=== PATIENT | male | born 1985 ===

== ENCOUNTER 2020-09-02 01:45 | Emergency (ER) | payer SELFPAY ==
[2020-09-02 02:58] VITALS: BP 148/95
[2020-09-02 04:08] LABS: Hematocrit 44.7 % (35.5-45.6); Hemoglobin 15.5 gm/dl (11.8-15.2); Mean Corpuscular HGB Conc 35 % (32-34); Mean Corpuscular Volume 84 fl (84-94); Platelet Count 257 K/mm3 (140-440); Red Blood Count 5.29 M/mm3 (3.65-5.03); Red Cell Distribution Width 14.8 % (13.2-15.2)
[2020-09-02 04:23] LABS: Alanine Aminotransferase 20 units/L (7-56); Albumin 4.1 g/dL (3.9-5); BUN/Creatinine Ratio 13; Blood Urea Nitrogen 12 mg/dL (9-20); Calcium 9.3 mg/dL (8.4-10.2); Hemolysis Index 15
[2020-09-02] MEDS ORDERED: KETOROLAC 30 MG/1 ML INJ IM ONE (04:53)
[2020-09-02] MEDS ORDERED: ONDANSETRON 4 MG ODT TAB PO ONE (04:53)
--- NOTE | 2020-09-02 05:22 | XRay Report ---
ABDOMEN 1 VIEW 09/02/2020 5:07 AM INDICATION / CLINICAL INFORMATION: abdominal pain - constipation. COMPARISON: None available. FINDINGS: TUBES / LINES: None. BOWEL GAS PATTERN: Nonspecific bowel gas pattern with constipation the right colon FREE AIR / EXTRALUMINAL GAS: None. ADDITIONAL FINDINGS: No significant additional findings. IMPRESSION: 1. No significant abnormality. Signer Name: Codey Jung MD Signed: 09/02/2020 5:17 AM Workstation Name: [id number]
[2020-09-02 05:53] LABS: Bilirubin,Urine NEG (Negative); Blood,Urine SM (Negative); Color,Urine Yellow (Yellow); Mucus,Urine FEW /HPF; Protein,Urine <15 mg/dL mg/dL (Negative); Urobilinogen,Urine < 2.0 mg/dL (<2.0); WBC,Urine < 1.0 /HPF (0.0-6.0)
--- NOTE | 2020-09-02 06:49 | Ultrasound Report ---
Testicular ultrasound INDICATION: Pain FINDINGS: Right testicle measures 3.6 x 2.0 x 3.0 cm. Normal echogenicity with normal color and Doppl er flow. Left testicle measures 3.3 x 2.2 x 2.7 cm with normal echogenicity and color Doppler flow. B ilateral hydroceles are noted. Septations in left hydrocele. Some prominent vessels are seen along th e superior-lateral aspect of the right testicle. IMPRESSION: 1. Bilateral hydroceles. Septation within the left hydrocele. 2. Prominent blood vessels along the superior-lateral aspect of the right testicle, nonspecific. No e vidence for torsion. Signer Name: Codey Jung MD Signed: 09/02/2020 6:45 AM Workstation Name: [id number]
--- NOTE | 2020-09-02 07:12 | Emergency Department Report ---
ED Abdominal Pain HPI - General Chief Complaint: Abdominal Pain Stated Complaint: RT TESTICLE SWELLING/ABD PAIN Source: patient Mode of arrival: Ambulatory Limitations: No Limitations - History of Present Illness Initial Comments: Patient is a 35-year-old -[place] male with no past medical history who presents to the ED with complaint of acute onset persistent suprapubic pain that radiates to the right testicle and right inguinal area for the last 2 days. Patient states that the pain has been constant and worse especially with any movement. Patient denies hematuria, fever, chills, dysuria, urinary frequency and urgency, traumatic injury, heavy lifting, low back pain, cough, chest pain or shortness of breath, nausea, vomiting, diarrhea, constipation or numbness and tingling or weakness of lower extremities bilaterally. MD Complaint: abdominal pain (Suprapubic), other (right testicular pain and inguinal area pain) -: Sudden, days(s) (2) Location: suprapubic Radiation: none Migration to: no migration Severity: moderate Severity scale (0 -10): 5 Quality: cramping, aching Consistency: constant Improves With: nothing Worsens With: nothing Associated Symptoms: constipation, anorexia. denies: denies other symptoms, nausea, vomiting, diarrhea, fever, chills, dysuria, hematemesis, hematochezia, melena, hematuria, syncope, other - Related Data Previous Rx's Medication Instructions Recorded Last Taken Type Docusate Sodium [Dok] 100 mg PO Q12H #60 tablet 09/02/20 Unknown Rx Ibuprofen [Motrin] 800 mg PO Q8HR PRN #24 tablet 09/02/20 Unknown Rx Magnesium Citrate 295 ml PO ONCE #1 bottle 09/02/20 Unknown Rx Allergies Allergy/AdvReac Type Severity Reaction Status Date / Time No Known Allergies Allergy Unverified 09/02/20 02:52 ED Review of Systems ROS: Stated complaint: RT TESTICLE SWELLING/ABD PAIN Other details as noted in HPI Constitutional: denies: chills, fever Eyes: denies: eye pain, eye discharge, vision change ENT: denies: ear pain, throat pain Respiratory: denies: cough, shortness of breath, wheezing Cardiovascular: denies: chest pain, palpitations Endocrine: no symptoms reported Gastrointestinal: abdominal pain (suprapubic). denies: nausea, vomiting, diarrhea Genitourinary: testicular pain (right ). denies: urgency, dysuria Musculoskeletal: denies: back pain, joint swelling, arthralgia Skin: denies: rash, lesions Neurological: denies: headache, weakness, paresthesias Psychiatric: denies: anxiety, depression Hematological/Lymphatic: denies: easy bleeding, easy bruising ED Past Medical Hx - Past Medical History Previous Medical History?: No - Surgical History Past Surgical History?: No - Medications Home Medications: Home Medications Medication Instructions Recorded Confirmed Last Taken Type Docusate Sodium [Dok] 100 mg PO Q12H #60 tablet 09/02/20 Unknown Rx Ibuprofen [Motrin] 800 mg PO Q8HR PRN #24 tablet 09/02/20 Unknown Rx Magnesium Citrate 295 ml PO ONCE #1 bottle 09/02/20 Unknown Rx ED Physical Exam - General Limitations: No Limitations General appearance: alert, in no apparent distress - Head Head exam: Present: atraumatic, normocephalic, normal inspection - Eye Eye exam: Present: normal appearance, PERRL, EOMI Pupils: Present: normal accommodation - ENT ENT exam: Present: normal exam, normal orophraynx, mucous membranes moist, TM's normal bilaterally, normal external ear exam - Neck Neck exam: Present: normal inspection, full ROM - Respiratory Respiratory exam: Present: normal lung sounds bilaterally. Absent: respiratory distress, wheezes, rales, stridor, chest wall tenderness, accessory muscle use, decreased breath sounds, prolonged expiratory - Cardiovascular Cardiovascular Exam: Present: regular rate, normal rhythm, normal heart sounds. Absent: systolic murmur, diastolic murmur, rubs, gallop - GI/Abdominal GI/Abdominal exam: Present: soft, normal bowel sounds. 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 Absent: tenderness, CVA tenderness (R), CVA tenderness (L), muscle spasm - Neurological Exam Neurological exam: Present: alert, oriented X3, CN II-XII intact, normal gait, reflexes normal - Psychiatric Psychiatric exam: Present: normal affect, normal mood - Skin Skin exam: Present: warm, dry, intact, normal color. Absent: rash ED Course Vital Signs 09/02/20 02:56 Temperature 97.5 F L Pulse Rate 72 Respiratory 20 Rate Blood Pressure 148/95 [Right] O2 Sat by Pulse 99 Oximetry ED Medical Decision Making - Lab Data Result diagrams: 09/02/20 03:03 09/02/20 03:03 - Radiology Data Radiology results: report reviewed, image reviewed [facility] [address] [place] [address] Ultrasound Report Signed Patient: JOE EVANS MR#: [id number] : 1985 Acct:[id number] Age/Sex: 35 / M ADM Date: 09/02/20 Loc: ED Attending Dr: Ordering Physician: DILLON CHILDS Date of Service: 09/02/20 Procedure(s): US testicular doppler comp Accession Number(s): [id number] cc: DILLON CHILDS Testicular ultrasound INDICATION: Pain FINDINGS: Right testicle measures 3.6 x 2.0 x 3.0 cm. Normal echogenicity with normal color and Doppler flow. Left testicle measures 3.3 x 2.2 x 2.7 cm with normal echogenicity and color Doppler flow. Bilateral hydroceles are noted. Septations in left hydrocele. Some prominent vessels are seen along the superior-lateral aspect of the right testicle. IMPRESSION: 1. Bilateral hydroceles. Septation within the left hydrocele. 2. Prominent blood vessels along the superior-lateral aspect of the right testicle, nonspecific. No evidence for torsion. Signer Name: Codey Jung MD Signed: 09/02/2020 6:45 AM Workstation Name: [id number] Transcribed By: DAYSI Dictated By: IVETT JUNG MD Electronically Authenticated By: IVETT JUNG MD Signed Date/Time: 09/02/20644 DD/ 3 TD/TT: -------- [facility] [address] [place] [address] XRay Report Signed Patient: JOE EVANS MR#: [id number] : 1985 Acct:[id number] Age/Sex: 35 / M ADM Date: 09/02/20 Loc: ED Attending Dr: Ordering Physician: DILLON CHILDS Date of Service: 09/02/20 Procedure(s): XR abdomen 1V ap Accession Number(s): [id number] cc: DILLON CHILDS Fluoro Time In Minutes: ABDOMEN 1 VIEW 09/02/2020 5:07 AM INDICATION / CLINICAL INFORMATION: abdominal pain - constipation. COMPARISON: None available. FINDINGS: TUBES / LINES: None. BOWEL GAS PATTERN: Nonspecific bowel gas pattern with constipation the right colon FREE AIR / EXTRALUMINAL GAS: None. ADDITIONAL FINDINGS: No significant additional findings. IMPRESSION: 1. No significant abnormality. Signer Name: Codey Jung MD Signed: 09/02/2020 5:17 AM Workstation Name: [id number] Transcribed By: CW Dictated By: IVETT JUNG MD Electronically Authenticated By: IVETT JUNG MD Signed Date/Time: 09/02/20516 DD/ 6 TD/TT: - Medical Decision Making This is a 35-year-old -[place] male with no past medical history who presents to the ED with complaint of acute onset persistent suprapubic pain that radiates to the right testicle and right inguinal area for the last 2 days. Patient states that the pain has been constant and worse especially with any movement. In the ED, patient is alert and oriented x3 and is not in any distress. Patient is hemodynamically stable. Patient was treated for pain in the ED. Lab test results were reviewed and are all nonactionable. Patient was treated for pain in the ED and testicular ultrasound showed bilateral hydroceles. Septation within the left hydrocele. It also showed prominent blood vessels along the superior-lateral aspect of the right testicle, nonspecific. No evidence for torsion. The abdomen KUB x-ray showed nonspecific bowel gas p attern with constipation the right colon with no other abdominal gas abnormalities or other significant acute additional findings. On reevaluation, patient's pain is well controlled medications. Patient was discharged home on pain medications and advised to follow-up with his primary care physician in 5 to 7 days for reevaluation. Patient is advised return to the ED immediately if symptoms get worse. - Differential Diagnosis Constipation; Testicular torsion; UTI; kidney stones; colitis; Critical care attestation.: If time is entered above; I have spent that time in minutes in the direct care of this critically ill patient, excluding procedure time. ED Disposition Clinical Impression: Abdominal pain in male Constipation Qualifiers: Constipation type: other constipation type Qualified Code(s): K59.09 - Other constipation Disposition: DC- TO HOME OR SELFCARE Is pt being admited?: No Does the pt Need Aspirin: No Condition: Stable Instructions: Constipation, Adult, [id number], Abdominal Pain, Adult, [id number] Additional Instructions: All lab test results were reviewed and are all nonactionable. The abdomen KUB x-ray showed significant constipation. Testicular ultrasound showed no evidence of torsion but bilateral hydroceles. Therefore take medication with food, drink plenty of fluids and follow-up with your primary care physician in 5 to 7 days for reevaluation. Increase your fiber intake as well as fluid intake to improve on your constipation. Return to the ED immediately if symptoms get worse. Prescriptions: Docusate Sodium [Dok] 100 mg PO Q12H #60 tablet Magnesium Citrate 295 ml PO ONCE #1 bottle Ibuprofen [Motrin] 800 mg PO Q8HR PRN #24 tablet PRN Reason: Pain , Severe (7-10) Referrals: [facility] [Provider Group] - 3-5 Days Forms: Work/School Release Form(ED) Time of Disposition: 07:12 Print Language: LITHUANIAN
[2020-09-02 07:13] LABS: Total Cells Counted 100
[2020-09-02 07:14] LABS: Platelet Estimate Consistent w Auto; RBC Morphology Normal
== END 2020-09-02 08:08 | disposition home or self-care (01) ==
LOC: ED 01:45
DX: K59.00 Constipation, unspecified (principal); R10.9 Unspecified abdominal pain; Z79.899 Other long term (current) drug therapy
CPT/HCPCS: 36415; 74018; 80053; 81001; 83690; 85007; 85025; 93975